=== PATIENT | female | born 1980 | race Caucasian/White ===

== ENCOUNTER 2019-11-13 19:45 | Emergency (ER) | payer BC, MEDICARE ==
[2019-11-13] MEDS ORDERED: ASPIRIN 81 MG CHEWABLE TABLET PO ONE (19:47)
--- NOTE | 2019-11-13 19:55 | Emergency Department Record ---
History of Present Illness - General Chief Complaint: Chest Pain Stated Complaint: CHEST PAIN/PALPITATIONS Time Seen by Provider: 11/13/19 19:47 Source: Patient Mode of Arrival: Ambulatory Limitations: No limitations - History of Present Illness Initial Comments: 39 yo female presents to ED for evaluation of chest discomfort associated with palpitations. Patient reports similar symptoms several days ago that lasted approximately 4 hours, unknown cause. Patient reports this evening she was at her child's basketball game when her symptoms began, worsened when driving here to the ED. Patient denies history of heart or lung problems, denies SOB, and denies previous history of DVT/PE or lower extremity swelling/pain symptoms. Patient denies health problems at her baseline. MD Complaint: Chest pain Onset/Timin -: Hour(s) Onset: During rest Pain Location: Substernal Pain Radiation: None Severity: Moderate Quality: Heaviness Consistency: Constant Improves With: Nothing Worsens With: Nothing Treatments Prior to Arrival: None - Related Data On Oral Contraceptives: No Allergies Allergy/AdvReac Type Severity Reaction Status Date / Time furosemide [From Lasix] Allergy HIVES Unverified 10/31/19 08:46 Review of Systems Constitutional: Denies: Chills, Fever, Malaise, Night sweats Eyes: Denies: Eye discharge, Eye pain ENT: Denies: Congestion, Ear pain, Epistaxis Respiratory: Denies: Cough, Dyspnea Cardiovascular: Reports: Chest pain, Palpitations. Denies: Dyspnea on exertion Endocrine: Denies: Fatigue, Heat or cold intolerance Gastrointestinal: Denies: Abdominal pain, Nausea Genitourinary: Denies: Incontinence, Retention Musculoskeletal: Denies: Arthralgia, Back pain Skin: Denies: Bruising, Change in color Neurological: Denies: Abnormal gait, Confusion, Headache, Seizure Psychiatric: Denies: Anxiety Hematological/Lymphatic: Denies: Anemia, Blood Clots Past Medical History - SOCIAL HISTORY Smoking Status: Former smoker - RESPIRATORY Hx Respiratory Disorders: No - CARDIOVASCULAR Hx Cardio Disorders: No - NEURO Hx Neuro Disorders: No - GI Hx GI Disorders: No - Hx Genitourinary Disorders: Yes Hx Bladder Problem: Yes (cant empty bladder) - ENDOCRINE Hx Endocrine Disorders: No - MUSCULOSKELETAL Hx Musculoskeletal Disorders: Yes Comment:: states pain in back and right leg - PSYCH Hx Psych Problems: Yes Hx Depression: Yes - HEMATOLOGY/ONCOLOGY Hx Hematology/Oncology Disorders: No Physical Exam - General General Appearance: Alert, Oriented x3, Cooperative, Mild distress Limitations: No limitations - Head Head exam: Atraumatic, Normocephalic, Normal inspection Head exam detail: negative: Abrasion, Contusion, Guillen's sign, General tenderness, Hematoma, Laceration - Eye Eye exam: Normal appearance. negative: Conjunctival injection, Periorbital swelling, Periorbital tenderness, Scleral icterus - ENT Ear exam: negative: Auricular hematoma, Auricular trauma Nasal Exam: negative: Active bleeding, Discharge, Dried blood, Foreign body Mouth exam: negative: Drooling, Laceration, Muffled voice, Tongue elevation - Neck Neck exam: Normal inspection. negative: Meningismus, Tenderness - Respiratory Respiratory exam: Normal lung sounds bilaterally. negative: Rales, Respiratory distress, Rhonchi, Stridor - Cardiovascular Cardiovascular Exam: Regular rate, Normal rhythm, Normal heart sounds - GI/Abdominal GI/Abdominal exam: Soft. negative: Rebound, Rigid, Tenderness - Rectal Rectal exam: Deferred - exam: Deferred - Extremities Extremities exam: Normal inspection. negative: Calf tenderness, Pedal edema, Tenderness - Back Back exam: Denies: CVA tenderness (R), CVA tenderness (L) - Neurological Neurological exam: Alert, Normal gait, Oriented X3 - Psychiatric Psychiatric exam: Normal affect, Normal mood - Skin Skin exam: Normal color. negative: Abrasion Type of lesion: negative: abrasion Course - Reevaluation(s) Reevaluation #1: 11/13/19 19:58 EKG: NSR 69 Normal axis, normal intervals No acute ST-T wave changes Reevaluation #2: 11/13/19 20:48 Laboratory studies were reviewed and appear grossly unremarkable for an acute process. Patient was updated on all results, patient reports that she resting comfortably at this time and feels at her baseline. Reevaluation #3: 11/13/19 21:40 CXR: No acute process identified Patient was updated on all results, no clinical suspicion for ACS based on the patient's history, EKG, and examination. Patient has no significant risk factors for ACS on examination. PE excluded No acute arrhythmias are noted while monitored in the ED. Patient appears stable for discharge at this time with instructions to follow-up with her PCP in 3-5 days for further evaluation. Medical Decision Making - Lab Data Result diagrams: 11/13/19 19:52 11/13/19 19:52 Disposition Disposition: Discharge Clinical Impression: Palpitations Disposition: Home, Self-Care Condition: (2) Stable Instructions: Heart Palpitations (ED) Additional Instructions: Return to ED if your symptoms worsen or if you have any concerns. Follow-up with your family doctor in 3-5 days as directed. Forms: Patient Portal Access Time of Disposition: 21:42 Quality - Quality Measures Quality Measures: N/A - Blood Pressure Screening Does Patient Have Any of the Following: No Blood Pressure Classification: Hypertensive Reading Systolic Measurement: 157 Diastolic Measurement: 106 Screening for High Blood Pressure: < First Hypertensive BP, F/U Documented > [[id number]] First Hypertensive Follow-up Interventions: Referral to alternative/primary care provider.
[2019-11-13 20:06] LABS: ABSOLUTE NEUTROPHIL COUNT 5.11; BASO % 0.3 % (0-6); EOS % 1.6 % (0-6); GRAN % 53.7 % (47-80); HEMATOCRIT 44.8 % (35.0-47.0); HEMOGLOBIN 14.9 gm/dl (11.6-16.0); MEAN CELL VOLUME 84.7 fl (81-97); MEAN CORPUSCULAR HEMOGLOBIN 28.2 pg (27-33); MEAN CORPUSCULAR HGB CONC 33.3 g/dl (32-36); MEAN PLATELET VOLUME 11.2 fl (7.4-10.4); MONO % 6.4 % (0-9); PLATELET COUNT 182 K/uL (130-400); RED BLOOD COUNT 5.29 M/uL (3.80-5.40); WHITE BLOOD COUNT W/O DIFF 9.5 K/uL (4.2-12.2)
[2019-11-13 20:18] LABS: BILIRUBIN,TOTAL < 0.20 mg/dL (0.2-1.0); BLOOD UREA NITROGEN 16 mg/dL (6-20); EST GLOMERULAR FILTRATION RATE > 60 mL/min
[2019-11-13 20:19] LABS: TOTAL PROTEIN 7.3 g/dL (6.6-8.7)
[2019-11-13 20:21] LABS: GLUCOSE,RANDOM 95 mg/dL (74-109)
[2019-11-13 20:24] LABS: ALB/GLOB RATIO 1.6 (1.1-1.8); ALBUMIN 4.5 g/dL (4.0-5.0); ALKALINE PHOSPHATASE 96 U/L (35-104); ALT/SGPT 9 U/L (<33); AST/SGOT 16 U/L (10.0-35.0)
[2019-11-13 20:34] LABS: THYROID STIMULATING HORMONE 2.21 uIU/mL (0.270-4.20)
--- NOTE | 2019-11-13 21:29 | RADIOLOGY REPORT ---
EXAMINATION: Two View Chest Radiographs EXAM DATE: 11/13/2019 9:22 PM TECHNIQUE: Frontal and lateral views INDICATION: Chest pain COMPARISON: None ENCOUNTER: Not applicable FINDINGS: The heart, mediastinum, and pulmonary vasculature are normal. No lung consolidation or pleural effu sions are present. IMPRESSION: No findings to suggest acute pulmonary parenchymal process. Dictated by: Jesse Dai MD on 11/13/2019 9:27 PM. .
== END 2019-11-13 21:50 | disposition home or self-care (01) ==
LOC: ER 19:45
DX: R00.2 Palpitations (principal); Z87.891 Personal history of nicotine dependence
CPT/HCPCS: 71046; 80053; 84443; 84484; 85025; 85379; 93005; 93010; 99284